=== PATIENT | female | born 1935 | race Caucasian/White ===

== ENCOUNTER 2023-05-17 17:24 | Inpatient (IN) ==
[2023-05-17 18:04] LABS: ABS Basophils 0.1 10^3/uL (0.0-0.1); ABS Eosinophils 0.1 10^3/uL (0.0-0.5); ABS Monocytes 1.2 10^3/uL (0.0-0.9); ABS Neutrophils 4.7 10^3/uL (1.5-7.6); ABS Nucleated RBC 0.01 10^3/ul; Eosinophil % 1.4 %; Hematocrit 39.4 % (35-45); Hemoglobin 13.2 g/dL (11.5-14.3); Lymphocyte % 24.9 %; Mean Corpuscular Hemoglobin 33.1 pg (27-33); Mean Corpuscular Hgb Conc 33.6 g/dL (31-36); Mean Corpuscular Volume 98.6 fL (80-97); Mean Platelet Volume 8.8 fL (7.5-11.2); Nucleated Red Blood Cells % 0.1 %/100WBC (0.0-0.8); Platelet Count 213 10^3/uL (150-450); Red Cell Distribution Width 15.9 % (12-17); White Blood Count 8.2 10^3/uL (3.8-11.8)
[2023-05-17 18:13] LABS: INR 2.08 (0.83-1.13)
[2023-05-17 18:42] LABS: ALT 64 U/L (7-52); Albumin 3.9 g/dL (3.2-5.2); Albumin/Globulin Ratio 1.5 (1-3); Alkaline Phosphatase 311 U/L (35-149); Anion Gap 12 mmol/L (2-16); Blood Urea Nitrogen 44 mg/dL (6-24); CO2 Carbon Dioxide 16 mmol/L (22-32); Calcium 9.9 mg/dL (8.6-10.3); Chloride 107 mmol/L (101-111); Creatinine, Serum 1.42 mg/dL (0.51-0.95); Globulin 2.6 g/dL (2-4); Glucose 117 mg/dL (70-100); Sodium 135 mmol/L (135-145); Total Protein 6.5 g/dL (6.4-8.9); eGFR CKD-EPI 35.4 (>60)
[2023-05-17 19:25] LABS: High Sens Troponin Baseline 13 pg/mL (<15)
[2023-05-17 19:34] LABS: High Sensitivity Troponin 1 Hr 14 pg/mL (<15)
[2023-05-17 23:23] LABS: Magnesium 2.2 mg/dL (1.9-2.7)
[2023-05-17] MEDS ORDERED: Furosemide 20 mg/2 ml IV VIAL IV ONE (23:26)
[2023-05-18 00:04] LABS: TSH Ultra Thyroid Stim Horm 5.97 mcIU/mL (0.34-5.60)
[2023-05-18 00:06] LABS: Free T4 1.32 ng/dL (0.61-1.12)
[2023-05-18] MEDS ORDERED: Metoprolol Tartrate 5 mg VIAL 5 ml VIAL (1 mg/ml) IV PRN (04:04)
[2023-05-18] MEDS ORDERED: Metoprolol Tartrate 5 mg VIAL 5 ml VIAL (1 mg/ml) IV ONE ×2 (04:52→04:55)
[2023-05-18] MEDS ORDERED: Furosemide 20 mg/2 ml IV VIAL IV SLOW PU ONE (08:55)
[2023-05-18 09:29] LABS: ABS Basophils 0.1 10^3/uL (0.0-0.1); ABS Eosinophils 0.1 10^3/uL (0.0-0.5); ABS Lymphocytes 1.4 10^3/uL (1.0-4.8); ABS Monocytes 0.5 10^3/uL (0.0-0.9); ABS Neutrophils 4.6 10^3/uL (1.5-7.6); ABS Nucleated RBC 0.01 10^3/ul; Eosinophil % 1.4 %; Hematocrit 38.7 % (35-45); Hemoglobin 13.1 g/dL (11.5-14.3); Lymphocyte % 21.3 %; Mean Corpuscular Hemoglobin 33.3 pg (27-33); Mean Corpuscular Hgb Conc 33.8 g/dL (31-36); Mean Corpuscular Volume 98.6 fL (80-97); Nucleated Red Blood Cells % 0.1 %/100WBC (0.0-0.8); Platelet Count 183 10^3/uL (150-450); Red Blood Count 3.93 10^6/uL (3.63-4.92); Red Cell Distribution Width 15.8 % (12-17); White Blood Count 6.7 10^3/uL (3.8-11.8)
[2023-05-18 09:51] LABS: Calcium 9.9 mg/dL (8.6-10.3); Creatinine, Serum 1.37 mg/dL (0.51-0.95); Potassium 4.4 mmol/L (3.5-5.0); eGFR CKD-EPI 36.9 (>60)
[2023-05-18 10:04] LABS: Ferritin 81.2 ng/mL (11-307)
[2023-05-18] MEDS: Latanoprost 0.005% 2.5 ml BTL BOTH EYES SCH (20:11)
[2023-05-19 06:21] LABS: Calcium 9.3 mg/dL (8.6-10.3); Creatinine, Serum 1.49 mg/dL (0.51-0.95); Magnesium 1.8 mg/dL (1.9-2.7); Phosphorus 3.2 mg/dL (2.5-5.0); Potassium 4.1 mmol/L (3.5-5.0); eGFR CKD-EPI 33.4 (>60)
[2023-05-19 06:31] LABS: TSH Ultra Thyroid Stim Horm 5.75 mcIU/mL (0.34-5.60)
[2023-05-19] MEDS ORDERED: Magnesium Sulfate 2 gm BAG 2 GM/50 ML BAG IVPB ONE (07:34)
[2023-05-19] MEDS ORDERED: Furosemide 20 mg/2 ml IV VIAL IV ONE (08:20)
[2023-05-19] MEDS ORDERED: Metoprolol Tartrate 5 mg VIAL 5 ml VIAL (1 mg/ml) IV ONE (11:23)
[2023-05-19] MEDS: Amiodarone 400 mg TAB PO SCH ×2 (15:11→21:19)
[2023-05-19] MEDS: Latanoprost 0.005% 2.5 ml BTL BOTH EYES SCH (21:19)
[2023-05-20 06:03] LABS: ABS Basophils 0.1 10^3/uL (0.0-0.1); ABS Eosinophils 0.2 10^3/uL (0.0-0.5); ABS Lymphocytes 1.5 10^3/uL (1.0-4.8); ABS Monocytes 0.9 10^3/uL (0.0-0.9); ABS Neutrophils 3.2 10^3/uL (1.5-7.6); ABS Nucleated RBC 0.01 10^3/ul; Eosinophil % 3.3 %; Hematocrit 35.3 % (35-45); Hemoglobin 12.2 g/dL (11.5-14.3); Lymphocyte % 24.9 %; Mean Corpuscular Hemoglobin 33.7 pg (27-33); Mean Corpuscular Hgb Conc 34.5 g/dL (31-36); Mean Corpuscular Volume 97.5 fL (80-97); Mean Platelet Volume 8.9 fL (7.5-11.2); Nucleated Red Blood Cells % 0.1 %/100WBC (0.0-0.8); Platelet Count 180 10^3/uL (150-450); Red Blood Count 3.62 10^6/uL (3.63-4.92); Red Cell Distribution Width 15.6 % (12-17)
[2023-05-20 06:17] LABS: Calcium 9.2 mg/dL (8.6-10.3); Creatinine, Serum 1.36 mg/dL (0.51-0.95); Potassium 3.9 mmol/L (3.5-5.0); eGFR CKD-EPI 37.2 (>60)
[2023-05-20] MEDS ORDERED: Potassium Chlor 20 meq TAB.ER PO ONE (07:11)
[2023-05-20] MEDS ORDERED: Furosemide 20 mg/2 ml IV VIAL IV SLOW PU SCH (09:00)
[2023-05-20] MEDS: Amiodarone 400 mg TAB PO SCH ×2 (09:38→21:45)
[2023-05-20] MEDS ORDERED: Midazolam 5 mg/5 ml VIAL 1 mg/ml 5 ml VIAL (5 mg) ONE (11:06)
[2023-05-20] MEDS ORDERED: fentaNYL 100 mcg/2 ml 50 MCG/ML VIAL ONE (11:06)
[2023-05-20] MEDS ORDERED: Naloxone 0.4 mg VIAL 0.4 mg/ml 1 ml VIAL ONE (11:06)
[2023-05-20] MEDS ORDERED: Flumazenil 0.5 mg/5 ml 0.1 MG/ML 5 ml VIAL ONE (11:06)
[2023-05-20] MEDS ORDERED: Midazolam 10 mg/10 ml VIAL 1 mg/ml 10 ml VIAL (10 mg) IV SLOW PU ONE (12:35)
[2023-05-20] MEDS ORDERED: Naloxone 0.4 mg VIAL 0.4 mg/ml 1 ml VIAL IV PUSH PRN (12:35)
[2023-05-20] MEDS ORDERED: Flumazenil 0.5 mg/5 ml 0.1 MG/ML 5 ml VIAL IV PRN (12:35)
[2023-05-20] MEDS ORDERED: fentaNYL 100 mcg/2 ml 50 MCG/ML VIAL IV SLOW PU ONE (12:35)
[2023-05-20] MEDS: Latanoprost 0.005% 2.5 ml BTL BOTH EYES SCH (21:46)
[2023-05-21 06:22] LABS: ABS Basophils 0.1 10^3/uL (0.0-0.1); ABS Eosinophils 0.2 10^3/uL (0.0-0.5); ABS Lymphocytes 1.4 10^3/uL (1.0-4.8); ABS Neutrophils 3.3 10^3/uL (1.5-7.6); Eosinophil % 3.2 %; Hematocrit 34.6 % (35-45); Hemoglobin 11.9 g/dL (11.5-14.3); Lymphocyte % 23.5 %; Mean Corpuscular Hemoglobin 33.7 pg (27-33); Mean Corpuscular Hgb Conc 34.4 g/dL (31-36); Mean Platelet Volume 8.7 fL (7.5-11.2); Platelet Count 163 10^3/uL (150-450); Red Blood Count 3.53 10^6/uL (3.63-4.92); Red Cell Distribution Width 15.8 % (12-17)
[2023-05-21 06:33] LABS: Calcium 9.1 mg/dL (8.6-10.3); Creatinine, Serum 1.19 mg/dL (0.51-0.95); Magnesium 1.8 mg/dL (1.9-2.7); Potassium 3.8 mmol/L (3.5-5.0); eGFR CKD-EPI 43.7 (>60)
[2023-05-21] MEDS ORDERED: Magnesium Sulfate IV 3 GM in NS 0.9% 100 ml BAG 100 ML IVPB ONE (07:20)
[2023-05-21] MEDS ORDERED: Potassium Chlor 20 meq TAB.ER PO ONE (07:20)
[2023-05-21] MEDS: Amiodarone 400 mg TAB PO SCH (09:11)
[2023-05-21 16:02] VITALS: BP 131/82
== END 2023-05-21 15:50 | DRG 308 ==
LOC: ED 17:24 → EDHOLD 17:24 → SUATTDRO 21:28 → EDHOLD 05-18 00:05 → MEDTELE 05-18 01:32 → SUATTDRO 05-18 16:27
PROVIDERS: ADMIT Hospitalist; ATTEND Student in an Organized Health Care Education/Training Program